=== PATIENT | female | born 1975 | race Caucasian/White ===

== ENCOUNTER 2018-04-23 13:55 | Emergency (ER) | payer SELFPAY ==
[~2018-04-23] VITALS: Ht 154.9 cm; Wt 104.3 kg
== END 2018-04-23 16:06 | disposition home or self-care (01) ==
LOC: ER 14:27
DX: M79.89 Other specified soft tissue disorders (principal); F15.90 Other stimulant use, unspecified, uncomplicated; F17.210 Nicotine dependence, cigarettes, uncomplicated
CPT/HCPCS: 99282